=== PATIENT | male | born 1960 | race Caucasian/White ===

== ENCOUNTER → 2019-01-15 | Outpatient (CLI) | payer OTHER ==
--- NOTE | 2019-01-15 13:07 | RADIOLOGY REPORT (SQ) ---
EXAM DESCRIPTION: MRI CERVICAL SPINE WITHOUT COMPLETED DATE/TIME: 01/15/2019 10:47 am REASON FOR STUDY: CERVICALGIA (M54.2) M54.2 CERVICALGIA COMPARISON: None. TECHNIQUE: Sagittal and Axial imaging includes T1, T2, STIR and gradient echo sequences. LIMITATIONS: None. FINDINGS: ALIGNMENT: Normal. VERTEBRAE: Intact. BONE MARROW: Normal. No marrow replacement or reactive changes. DISCS: Normal. No significant abnormal signal or loss of height. HARDWARE: None in the spine. CORD AND BASE OF BRAIN: Normal in size and signal intensity. SOFT TISSUES: No soft tissue masses. C1-C2: No central or foraminal stenosis C2-C3: No central or foraminal stenosis C3-C4: Broad diffuse posterior disc bulge partially effaces the ventral thecal sac without significan t central canal narrowing. Cord flattening. Moderate right, mild left foraminal narrowing from facet and uncovertebral hypertrophy. C4-C5: Minimal posterior disc bulging. No central or foraminal stenosis. C5-C6: Mild diffuse posterior disc bulging. No central or foraminal encroachment. C6-C7: No central or foraminal stenosis C7-T1: No central or foraminal stenosis OTHER: No other significant finding. IMPRESSION: Mild is degenerative disc changes and facet arthropathy most pronounced at age is C3-4. TECHNICAL DOCUMENTATION: JOB ID: [id number] [email or web address] Rights Reserved Reading location - IP/workstation name: [email or web address]
== END ==
LOC: RAD 10:01
PROVIDERS: ATTEND Physician Assistant Surgical
DX: M50.31 Other cervical disc degeneration, high cervical region (principal)
CPT/HCPCS: 72141